=== PATIENT | female | born 1985 | race Caucasian/White ===

== ENCOUNTER → 2019-11-16 | Outpatient (CLI) | payer BC ==
[~2019-11-16] MED LIST: CPR500T PO; DEPO; FLOMAX; LEVOTHYROXINE; LVT.1T PO; MEDR150D8 IM; ONDA8TAB13 PO; OXYC1TAB95 PO; PERCOCET; PHEN200T27 PO; TAMS0.4C9 PO
== END ==
LOC: LAB FS 11:51
PROVIDERS: ATTEND Nurse Practitioner Family
DX: E04.9 Nontoxic goiter, unspecified (principal)

== ENCOUNTER → 2020-01-03 | Outpatient (CLI) | payer BC | LOC: LAB FS 09:22 | PROVIDERS: ATTEND Family Medicine | DX: N92.6 Irregular menstruation, unspecified (principal) | CPT/HCPCS: 36415; 84702 ==

== ENCOUNTER → 2020-02-08 | Outpatient (CLI) | payer BC ==
[2020-02-08 15:32] LABS: WHITE BLOOD COUNT 11.5 10^3/uL (4.3-11.0)
[2020-02-08 15:33] LABS: BASOPHILS % (AUTO) 0 % (0-10); EOSINOPHILS % (AUTO) 2 % (0-10); HEMATOCRIT 40 % (35-52); HEMOGLOBIN 13.4 G/DL (11.5-16.0); LYMPHOCYTES % (AUTO) 19 % (12-44); MEAN CORPUSCULAR HEMOGLOBIN 31 PG (25-34); MEAN CORPUSCULAR HGB CONC 34 G/DL (32-36); MEAN CORPUSCULAR VOLUME 92 FL (80-99); MEAN PLATELET VOLUME 10.4 FL (7.4-10.4); MONOCYTES % (AUTO) 6 % (0-12); NEUTROPHILS % (AUTO) 73 % (42-75); PLATELET COUNT 282 10^3/uL (130-400); RED CELL DISTRIBUTION WIDTH 12.7 % (10.0-14.5)
[2020-02-08 15:34] LABS: BASOPHILS # (AUTO) 0.1 10^3/uL (0.0-0.1); EOSINOPHILS # (AUTO) 0.2 10^3/uL (0.0-0.3); LYMPHOCYTES # (AUTO) 2.2 X 10^3 (1.0-4.0); MONOCYTES # (AUTO) 0.7 X 10^3 (0.0-1.0); NEUTROPHILS # (AUTO) 8.3 X 10^3 (1.8-7.8)
== END ==
LOC: LAB FS 14:44
PROVIDERS: ATTEND Family Medicine
DX: Z34.81 Encounter for supervision of other normal pregnancy, first trimester (principal)
CPT/HCPCS: 36415; 84443; 85025; 86703; 86762; 86780; 86850; 86900; 86901; 87088; 87340

== ENCOUNTER → 2020-04-04 | Outpatient (CLI) | payer BC | LOC: LAB FS 11:31 | PROVIDERS: ATTEND Family Medicine | DX: O99.280 Endocrine, nutritional and metabolic diseases complicating pregnancy, unspecified trimester (principal); E03.9 Hypothyroidism, unspecified; Z3A.00 Weeks of gestation of pregnancy not specified | CPT/HCPCS: 36415; 82105; 84443; 84702; 86336 ==

== ENCOUNTER → 2020-06-16 | Outpatient (CLI) | payer BC ==
[2020-06-16 16:47] LABS: HEMATOCRIT 38 % (35-52); HEMOGLOBIN 12.8 G/DL (11.5-16.0); MEAN CORPUSCULAR HEMOGLOBIN 30 PG (25-34); MEAN CORPUSCULAR VOLUME 91 FL (80-99); WHITE BLOOD COUNT 12.6 10^3/uL (4.3-11.0)
[2020-06-16 16:48] LABS: BASOPHILS % (AUTO) 0 % (0-10); EOSINOPHILS # (AUTO) 0.3 10^3/uL (0.0-0.3); EOSINOPHILS % (AUTO) 3 % (0-10); LYMPHOCYTES # (AUTO) 2.5 X 10^3 (1.0-4.0); LYMPHOCYTES % (AUTO) 20 % (12-44); MEAN CORPUSCULAR HGB CONC 34 G/DL (32-36); MEAN PLATELET VOLUME 10.6 FL (7.4-10.4); MONOCYTES # (AUTO) 0.6 X 10^3 (0.0-1.0); MONOCYTES % (AUTO) 5 % (0-12); NEUTROPHILS # (AUTO) 9.1 X 10^3 (1.8-7.8); NEUTROPHILS % (AUTO) 72 % (42-75); PLATELET COUNT 257 10^3/uL (130-400); RED CELL DISTRIBUTION WIDTH 12.4 % (10.0-14.5)
== END ==
LOC: LAB FS 16:08
PROVIDERS: ATTEND Family Medicine
DX: Z34.90 Encounter for supervision of normal pregnancy, unspecified, unspecified trimester (principal)
CPT/HCPCS: 36415; 82950; 85025; 85027; 86780

== ENCOUNTER → 2020-06-25 | Outpatient (CLI) | payer OTHER | LOC: LAB FS 07:42 | PROVIDERS: ATTEND Student in an Organized Health Care Education/Training Program | DX: O99.810 Abnormal glucose complicating pregnancy (principal); Z3A.00 Weeks of gestation of pregnancy not specified | CPT/HCPCS: 36415; 82951; 82952 ==

== ENCOUNTER → 2020-07-30 | Outpatient (CLI) | payer OTHER | LOC: LAB FS 11:40 | PROVIDERS: ATTEND Family Medicine | DX: E03.9 Hypothyroidism, unspecified (principal) | CPT/HCPCS: 36415; 84443 ==

== ENCOUNTER → 2020-08-14 | Outpatient (CLI) | payer OTHER | LOC: LABNPT 14:44 | PROVIDERS: ATTEND Family Medicine | DX: O09.90 Supervision of high risk pregnancy, unspecified, unspecified trimester (principal) | CPT/HCPCS: 87081 ==

== ENCOUNTER 2020-09-03 06:21 | Inpatient (IN) | payer OTHER ==
[~2020-09-03] VITALS: Ht 172.7 cm; Wt 95.2 kg
[2020-09-03] VITALS (75 sets, daily range): BP systolic 100–134; BP diastolic 54–91
[2020-09-03] MEDS ORDERED: OXYTOCIN PRE-MIX DRIP 500 ML IV SCH ×2 (06:33→23:34)
--- NOTE | 2020-09-03 06:40 | NUR ---
ROMELIA OCHOA presented to unit via ambulation from ED, accompanied by so, with c/o INDUCTION. ROMELIA OCHOA weighed, gowned, voided, and to bed. EFHM and TOCO applied, VS taken. ROMELIA OCHOA oriented to bed controls, call light, TV, heat, and A/C controls.
[2020-09-03] MEDS ORDERED: MINERAL OIL CONCENTRATE 99.9% 15 ML UDC TOP PRN (06:45)
[2020-09-03] MEDS ORDERED: LIDOCAINE/EPI 2% 1:200,00 (XYLOCAINE) 10 ML VIAL INJ PRN (06:45)
[2020-09-03] MEDS ORDERED: LEVOTHYROXINE 100 MCG (LEVOTHROID) TAB PO SCH ×2 (06:45→06:58)
--- NOTE | 2020-09-03 06:58 | NUR ---
Pt on EFM for induction FHR 150's pt denies UC at this time.
--- NOTE | 2020-09-03 07:17 | NUR ---
#20g IV to Lt.FA x1 attempt per this RN. site patent, secured with opsite. admission labs collected from site prior to IVF's infusing.
[2020-09-03] MEDS: D5 LR IV SOLUTION 1,000 ML IV SCH ×2 (07:27→15:19)
[2020-09-03 07:46] LABS: BILIRUBIN,URINE NEGATIVE (NEGATIVE); CLARITY,URINE CLOUDY; COLOR,URINE ORANGE; GLUCOSE, URINE (UA) NEGATIVE (NEGATIVE); KETONES,URINE NEGATIVE (NEGATIVE); LEUKOCYTE ESTERASE ,URINE 2+ (NEGATIVE); NITRITE,URINE NEGATIVE (NEGATIVE); PH,URINE 6.5 (5-9); PROTEIN,URINE NEGATIVE (NEGATIVE)
[2020-09-03 07:48] LABS: BASOPHILS % (AUTO) 0 % (0-10); EOSINOPHILS # (AUTO) 0.2 10^3/uL (0.0-0.3); EOSINOPHILS % (AUTO) 2 % (0-10); HEMATOCRIT 37 % (35-52); HEMOGLOBIN 11.9 g/dL (11.5-16.0); LYMPHOCYTES # (AUTO) 2.1 10^3/uL (1.0-4.0); LYMPHOCYTES % (AUTO) 22 % (12-44); MEAN CORPUSCULAR HEMOGLOBIN 28 pg (25-34); MEAN CORPUSCULAR HGB CONC 33 g/dL (32-36); MEAN CORPUSCULAR VOLUME 86 fL (80-99); MEAN PLATELET VOLUME 12.1 fL (9.0-12.2); MONOCYTES # (AUTO) 0.6 10^3/uL (0.0-1.0); MONOCYTES % (AUTO) 6 % (0-12); NEUTROPHILS # (AUTO) 6.5 10^3/uL (1.8-7.8); NEUTROPHILS % (AUTO) 69 % (42-75); PLATELET COUNT 250 10^3/uL (130-400); WHITE BLOOD COUNT 9.5 10^3/uL (4.3-11.0)
[2020-09-03 07:54] LABS: BACTERIA,URINE MODERATE /HPF; SQUAMOUS EPITHELIAL CELL,UR 25-50 /HPF
[2020-09-03] MEDS ORDERED: METF-397 PO (09:53)
[2020-09-03] MEDS ORDERED: LORA10CA PO (09:53)
[2020-09-03] MEDS ORDERED: fentaNYL 2 mcg/ml BUPIVA 0.125 100 ML ONE (10:14)
--- NOTE | 2020-09-03 10:31 | NUR ---
anesthesia notified of pt's request for epidural placement.
--- NOTE | 2020-09-03 10:55 | NUR ---
MARY Sierra and CHELSEA Andrade here for epidural placement. Procedure explained, consent reviewed and signed by anesthesia. Questions answered to patient's satisfaction. Time out taken to verify correct patient/procedure. 1100 Patient up to side of bed, assisted into sitting position. Betadine prep done x3 and sterile drape applied. 1107- Local done, see anesthesia record. 1116- Test dose given, see anesthesia record for drug and dosage. Epidural catheter secured in place. Epidural placement complete. 1123- Assisted back into bed, monitors adjusted. Epidural dosed, see anesthesia record. Epidural of Sufenta/Fentanyl @ 12cc/hr stated per pump. Patient tolerated procedure well.
[2020-09-03] MEDS ORDERED: BUPIVACAINE 0.25% 30 ML (SENSORCAINE) VIAL ONE (11:02)
[2020-09-03] MEDS ORDERED: fentaNYL INJECTION 100 MCG/2 ML AMP ONE (11:02)
[2020-09-03] MEDS ORDERED: LACTATED RINGERS 1,000 ML IV SCH (11:51)
--- NOTE | 2020-09-03 11:59 | NUR ---
Phillip Liz CRNA notified of pt's c/o regarding haley catheter placement and SVE. will come to evaluate.
[2020-09-03] MEDS ORDERED: EPIDURAL (fentaNYL 2 MCG/ML BUPIVA 0.125%)100 ML BAG EPI PRN (12:00)
[2020-09-03] MEDS ORDERED: ONDANSETRON 4 MG/2 ML (SDV) Z0FRAN IV PRN (12:00)
[2020-09-03] MEDS ORDERED: diphenhydrAMINE 50 MG/ML INJ (BENADRYL) IV PRN (12:00)
[2020-09-03] MEDS ORDERED: NALOXONE 0.4 MG/ML 1 ML (NARCAN) VIAL IV PRN ×2 (12:00)
[2020-09-03] MEDS ORDERED: fentaNYL 2 mcg/ml BUPIVA 0.125 100 ML EPI PRN (12:00)
[2020-09-03] MEDS ORDERED: METOCLOPRAMIDE INJ 10 MG/2 ML (REGLAN) IV PRN (12:00)
--- NOTE | 2020-09-03 12:07 | NUR ---
MARY Sierra here for epidural placement. Questions answered to patient's satisfaction. 1207- Patient up to side of bed, assisted into sitting position. Betadine prep done x3 and sterile drape applied. 1210- Local done, see anesthesia record. 1229- Test dose given, see anesthesia record for drug and dosage. Epidural catheter secured in place. Epidural placement complete. 1233-Assisted back into bed, monitors adjusted. Epidural dosed, see anesthesia record. Epidural of Sufenta/Fentanyl @ 12cc/hr. Addendum: 09/03/20 at 1438 by SASHA OCHOA RN 1208- epidural pump off. aditi benites'marc per MARY Sierra.
[2020-09-03] MEDS ORDERED: CATHETER FLUSH 10 ML SYR IV SCH (14:00)
--- NOTE | 2020-09-03 20:45 | History & Physical-OB ---
OB - Chief Complaint & HPI Date/Time Date of Admission: Date of Admission: Sep 03, 2020 at 06:21 Date seen by a Provider: Sep 03, 2020 Time Seen by a Provider: 16:30 Chief Complaint/History OB-Reason for Admission/Chief: Induction of Labor Hx : 2 Hx Para: 1 Expected Date of Delivery: Sep 10, 2020 Gestational Age in Weeks: 39 Gestational Age in Days: 0 Admission Nurse Assessment Rev: Yes Allergies and Home Medications Allergies Coded Allergies: cefaclor (Verified Allergy, Mild, 04/08/15) Home Medications Levothyroxine Sodium 100 Mcg Tablet, 100 MCG PO DAILY, (Reported) Loratadine 10 Mg Capsule, 10 MG PO DAILY, (Reported) Metformin HCl 500 Mg Tablet, 500 MG PO DAILY, (Reported) Patient Home Medication List Home Medication List Reviewed: Yes OB - History Hx of Present Care: Yes Ultrasounds: Normal mid trimester US Obstetrical Complications: Gestational Diabetes Medical Complications: Other (Hypothyroidism) Delivery History Hx Blood Disorders: No Patient Past Medical History Hypothyroidism Social History/Family History Recent Infectious Disease Expo: No Alcohol Use: Denies Use Recreational Drug Use: No OB - Admission Exam Physical Exam Vitals: Vital Signs 09/03/20 09/03/20 19:15 19:45 Temp 36.5 Pulse 95 Resp 18 B/P (MAP) 118/77 (91) Pulse Ox 97 O2 Delivery Room Air HEENT: NCAT Heart: Rhythm Normal Lungs: Clear Abdomen: Gravid Extremities: Normal Reflexes: Normal Cervical Dilatation: 4cm Effacement: 75% Station: Ballotable Membranes: Intact Heart Rate: 130's Accelerations: Accelerations Present Decelerations: Variable Decelerations Short Term Variability: Present 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 Variability: Average (6-25) Labs Laboratory Tests Test 09/03/20 07:30 Range/Units White Blood Count 9.5 4.3-11.0 10^3/uL Red Blood Count 4.23 3.80-5.11 10^6/uL Hemoglobin 11.9 11.5-16.0 g/dL Hematocrit 37 35-52 % Mean Corpuscular Volume 86 80-99 fL Mean Corpuscular Hemoglobin 28 25-34 pg Mean Corpuscular Hemoglobin Concent 33 32-36 g/dL Red Cell Distribution Width 12.8 10.0-14.5 % Platelet Count 250 130-400 10^3/uL Mean Platelet Volume 12.1 9.0-12.2 fL Immature Granulocyte % (Auto) 0 % Neutrophils (%) (Auto) 69 42-75 % Lymphocytes (%) (Auto) 22 12-44 % Monocytes (%) (Auto) 6 0-12 % Eosinophils (%) (Auto) 2 0-10 % Basophils (%) (Auto) 0 0-10 % Neutrophils # (Auto) 6.5 1.8-7.8 10^3/uL Lymphocytes # (Auto) 2.1 1.0-4.0 10^3/uL Monocytes # (Auto) 0.6 0.0-1.0 10^3/uL Eosinophils # (Auto) 0.2 0.0-0.3 10^3/uL Basophils # (Auto) 0.0 0.0-0.1 10^3/uL Immature Granulocyte # (Auto) 0.0 0.0-0.1 10^3/uL Urine Color ORANGE Urine Clarity CLOUDY Urine pH 6.5 5-9 Urine Specific [place] 1.025 H 1.016-1.022 Urine Protein NEGATIVE NEGATIVE Urine Glucose (UA) NEGATIVE NEGATIVE Urine Ketones NEGATIVE NEGATIVE Urine Nitrite NEGATIVE NEGATIVE Urine Bilirubin NEGATIVE NEGATIVE Urine Urobilinogen 0.2 < = 1.0 MG/DL Urine Leukocyte Esterase 2+ H NEGATIVE Urine RBC (Auto) 2+ H NEGATIVE Urine RBC 10-25 H /HPF Urine WBC 5-10 H /HPF Urine Squamous Epithelial Cells 25-50 H /HPF Urine Crystals NONE /LPF Urine Bacteria MODERATE H /HPF Urine Casts NONE /LPF Urine Mucus NEGATIVE /LPF Urine Culture Indicated YES OB - Assessment/Plan/Diagnosis Assessment Assessment: induction of labor Admission Dx Induction of labor at 39 0/7. Gestational diabetes, A1. Admission Status: Inpatient Order (span 2 midnights) Reason for Inpatient Admission: Induction. Plan Plan: Induction Induction Method: AROM Other Plan Pitocin. AROM. Epidural for pain. KIARA MELTON MD Sep 03, 2020 20:45
--- NOTE | 2020-09-03 23:38 | OB Labor & Delivery Record ---
Vag Delivery Note Vag Delivery Note Date of Delivery: 09/03/20 Preoperative Diagnosis: Rhonda Marte is a (35 /Para 2 / 1,Gestational Age (wks)39with [0 days] Postoperative Diagnosis: Same Surgeon: KIARA MELTON Draw String Knotter: [none] Anesthesia: [epidural] Delivery Type: [] Findings: [] Viable [male] infant, apgars [8/9], weight [8 pounds 6 ounces] Lacerations: Intact placenta with 3 vessel cord. No nuchal cord, body cord or shoulder dystocia Estimated Blood Loss: [200] ml Complications: None Condition: Stable Description of Procedure: The patient is a 35 year old female who presented [for induction]. She was admitted and informed consent was obtained. Her labor course was remarkable for [nothing] She progressed to complete dilatation and began to push. She was then set up for delivery. The 's head was delivered atraumatically in the [OA] position. The shoulders and remainder of the 's body were then delivered without difficulty. Upon delivery, the head was held below the level of the perineum and the mouth and nares were bulb suctioned. The cord was doubly clamped and cut after 60 seconds and the infant was handed off to the pediatric staff. An intact placenta with 3-vessel cord delivered via Edmundo and there was found to be minimal bleeding.~ Vigorous fundal massage was performed and the fundus was found to be firm. IV oxytocin was given. Examination of the vagina and perineum revealed a 1st degree perineal] laceration repaired in the usual fashion with 3-0 vicryl suture. Following the repair, sponge, instrument and needle counts were correct. Mom and baby were both in stable condition in the labor suite. Vitals - Labs Vital Signs - I&O Vital Signs Date Time Temp Pulse Resp B/P (MAP) Pulse Ox O2 Delivery O2 Flow Rate FiO2 09/03/20 22:15 70 18 112/77 (89) Room Air 09/03/20 22:00 78 18 125/82 (96) Room Air 09/03/20 21:45 68 18 128/83 (98) Room Air 09/03/20 21:30 71 18 119/66 (83) Room Air 09/03/20 21:15 68 18 114/69 (84) Room Air 09/03/20 21:00 76 18 109/62 (78) 99 Room Air 09/03/20 20:45 96 18 127/69 (88) 99 Room Air 09/03/20 20:30 82 18 119/81 (94) 99 Room Air 09/03/20 20:15 76 18 119/79 (92) 99 Room Air 09/03/20 20:00 85 18 124/80 (95) 97 Room Air 09/03/20 19:45 95 18 118/77 (91) 97 Room Air 09/03/20 19:30 85 18 119/76 (90) 97 Room Air 09/03/20 19:15 36.5 104 18 119/80 (93) 97 Room Air 09/03/20 19:00 106 18 115/70 (85) 97 Room Air 09/03/20 18:45 97 18 117/70 (86) 98 Room Air 09/03/20 18:30 96 18 118/71 (87) 98 Room Air 09/03/20 18:15 103 18 120/71 (87) 97 Room Air 09/03/20 18:00 107 18 113/69 (84) 96 Room Air 09/03/20 17:45 93 18 112/69 (83) 96 Room Air 09/03/20 17:30 36.6 94 18 120/77 (91) 97 Room Air 09/03/20 17:15 87 18 127/79 (95) 96 Room Air 09/03/20 17:00 90 18 115/70 (85) 97 Room Air 09/03/20 16:45 85 18 123/75 (91) 96 Room Air 09/03/20 16:30 85 18 113/67 (82) 97 Room Air 09/03/20 16:15 86 18 118/76 (90) 98 Room Air 09/03/20 16:00 85 18 112/67 (82) 98 Room Air 09/03/20 15:45 90 18 115/72 (86) 98 Room Air 09/03/20 15:30 88 18 111/83 (92) 97 Room Air 09/03/20 15:15 36.6 83 18 115/82 (93) 98 Room Air 09/03/20 15:00 78 18 103/62 (76) 98 Room Air 09/03/20 14:45 77 18 107/62 (77) 98 Room Air 09/03/20 14:30 71 18 107/58 (74) 99 Room Air 09/03/20 14:15 81 18 115/66 (82) 98 Room Air 09/03/20 14:00 82 18 114/68 (83) 98 Room Air 09/03/20 13:45 84 18 102/58 (73) 98 Room Air 09/03/20 13:30 84 18 108/63 (78) 99 Room Air 09/03/20 13:15 82 18 106/54 (71) 99 Room Air 09/03/20 13:00 84 18 100/57 (71) 98 Room Air 09/03/20 12:45 86 18 98 Room Air 09/03/20 12:40 83 18 100/57 (71) 97 Room Air 09/03/20 12:35 89 18 109/56 (73) 97 Room Air 09/03/20 12:30 91 18 123/73 (90) 98 Room Air 09/03/20 12:20 82 18 117/73 (88) 98 Room Air 09/03/20 12:15 87 18 125/76 (92) 98 Room Air 09/03/20 12:10 88 18 129/83 (98) 98 Room Air 09/03/20 12:05 85 18 126/77 (93) 98 Room Air 09/03/20 12:00 37.0 82 18 106/66 (79) 97 Room Air 09/03/20 11:45 78 18 124/70 (88) 96 Room Air 09/03/20 11:40 89 18 110/55 (73) 97 Room Air 09/03/20 11:35 75 18 113/59 (77) 97 Room Air 09/03/20 11:30 85 18 113/55 (74) 97 Room Air 09/03/20 11:25 92 18 122/65 (84) 98 Room Air 09/03/20 11:20 89 18 125/81 (96) 99 Room Air 09/03/20 11:15 85 18 125/79 (94) 99 Room Air 09/03/20 11:10 89 18 133/85 (101) 98 Room Air 09/03/20 11:05 91 18 127/78 (94) 98 Room Air 09/03/20 11:00 93 18 128/84 (99) 98 Room Air 09/03/20 10:45 91 18 130/85 (100) Room Air 09/03/20 10:30 93 18 124/81 (95) Room Air 09/03/20 10:15 90 18 118/75 (89) Room Air 09/03/20 10:00 88 18 118/74 (89) Room Air 09/03/20 09:45 96 18 121/75 (90) Room Air 09/03/20 09:30 96 18 121/75 (90) Room Air 09/03/20 09:15 88 18 126/78 (94) Room Air 09/03/20 09:00 99 18 119/71 (87) Room Air 09/03/20 08:45 91 18 127/77 (94) Room Air 09/03/20 08:30 93 18 134/82 (99) Room Air 09/03/20 08:15 100 18 130/91 (104) Room Air 09/03/20 08:00 101 18 119/73 (88) Room Air 09/03/20 07:45 99 18 122/77 (92) Room Air 09/03/20 07:30 89 18 131/89 (103) Room Air 09/03/20 07:25 36.0 97 18 98 Room Air 09/03/20 07:25 36.0 97 18 131/87 (102) 98 Room Air Labs Laboratory Tests 09/03/20 07:30: White Blood Count 9.5, Red Blood Count 4.23, Hemoglobin 11.9, Hematocrit 37, Mean Corpuscular Volume 86, Mean Corpuscular Hemoglobin 28, Mean Corpuscular Hemoglobin Concent 33, Red Cell Distribution Width 12.8, Platelet Count 250, Mean Platelet Volume 12.1, Immature Granulocyte % (Auto) 0, Neutrophils (%) (Auto) 69, Lymphocytes (%) (Auto) 22, Monocytes (%) (Auto) 6, Eosinophils (%) (Auto) 2, Basophils (%) (Auto) 0, Neutrophils # (Auto) 6.5, Lymphocytes # (Auto) 2.1, Monocytes # (Auto) 0.6, Eosinophils # (Auto) 0.2, Basophils # (Auto) 0.0, Immature Granulocyte # (Auto) 0.0, Urine Color ORANGE, Urine Clarity CLOUDY, Urine pH 6.5, Urine Specific [place] 1.025H, Urine Protein NEGATIVE, Urine Glucose (UA) NEGATIVE, Urine Ketones NEGATIVE, Urine Nitrite NEGATIVE, Urine Bilirubin NEGATIVE, Urine Urobilinogen 0.2, Urine Leukocyte Esterase 2+H, Urine RBC (Auto) 2+H, Urine RBC 10-25H, Urine WBC 5-10H, Urine Squamous Epithelial Cells 25-50H, Urine Crystals NONE, Urine Bacteria MODERATEH, Urine Casts NONE, Urine Mucus NEGATIVE, Urine Culture Indicated YES KIARA MELTON MD Sep 03, 2020 23:38
[2020-09-03] MEDS ORDERED: MEASLES,MUMPS,RUBELLA 1 EA INJ SQ ONE (23:45)
[2020-09-03] MEDS ORDERED: TETANUS,DIPTH,PERTUSS P/F (BOOSTRIX) 0.5 ML VIAL IM ONE (23:45)
[2020-09-03] MEDS ORDERED: BENZOCAINE/MENTHOL (DERMOPLAST) 60 ML CAN TP PRN (23:45)
[2020-09-03] MEDS ORDERED: WITCH HAZEL(TUCKS) 40 EA JAR TOP PRN (23:45)
[2020-09-04] VITALS (12 sets, daily range): BP systolic 108–133; BP diastolic 57–85
[2020-09-04] MEDS ORDERED: ACETAMINOPHEN 500 MG TAB (TYLENOL) ONE (01:02)
[2020-09-04] MEDS: ACETAMINOPHEN 500 MG TAB (TYLENOL) PO SCH ×3 (01:07→17:30)
[2020-09-04] MEDS: IBUPROFEN 600 MG (MOTRIN) TAB PO SCH ×4 (01:07→19:31)
--- NOTE | 2020-09-04 01:30 | NUR ---
Pericare completed. moderate rubra noted. pad changed. pt still unable to move right leg. will wait to transfer pt to pp room at this time.
--- NOTE | 2020-09-04 02:39 | NUR ---
pt is resting with eyes closed. She is able to move her right leg, but wants to rest. Will put administration specialist light when shes ready to move.
--- NOTE | 2020-09-04 04:00 | NUR ---
pt requesting to move to room. pericare completed. ff. light rubra. pt ambulated to bathroom. positive void. pericare completed. pt ambulated to w'c and taken down to 309. pt orientated to room. info papers discussed. ice pack applied to perineum. call light within reach. pt denies any further needs. Will continue to monitor.
[2020-09-04] MEDS ORDERED: CATHETER FLUSH 10 ML SYR IV SCH (06:00)
[2020-09-04 06:04] LABS: BASOPHILS % (AUTO) 0 % (0-10); EOSINOPHILS # (AUTO) 0.1 10^3/uL (0.0-0.3); EOSINOPHILS % (AUTO) 1 % (0-10); HEMATOCRIT 35 % (35-52); LYMPHOCYTES # (AUTO) 1.7 10^3/uL (1.0-4.0); LYMPHOCYTES % (AUTO) 11 % (12-44); MEAN CORPUSCULAR HEMOGLOBIN 28 pg (25-34); MEAN CORPUSCULAR HGB CONC 31 g/dL (32-36); MEAN CORPUSCULAR VOLUME 89 fL (80-99); MEAN PLATELET VOLUME 11.9 fL (9.0-12.2); MONOCYTES # (AUTO) 1.2 10^3/uL (0.0-1.0); MONOCYTES % (AUTO) 8 % (0-12); NEUTROPHILS # (AUTO) 12.3 10^3/uL (1.8-7.8); NEUTROPHILS % (AUTO) 79 % (42-75); PLATELET COUNT 205 10^3/uL (130-400); WHITE BLOOD COUNT 15.4 10^3/uL (4.3-11.0)
[2020-09-04 06:33] LABS: EOSINOPHILS % (MANUAL) 1 %; LYMPHOCYTES % (MANUAL) 23 %; MONOCYTES % (MANUAL) 4 %; NEUTROPHILS % (MANUAL) 72 %; RBC MORPH NORMAL
--- NOTE | 2020-09-04 06:56 | Anesthesia-Regional Post-Op ---
Regional Patient Condition Mental Status: Alert, Oriented x3 Circulation: Same as Pre-Op Headache: Absent Sensation: Full Recovery Motor Block: Absent Post Op Complications Complications None Follow Up Care/Instructions Patient Instructions None needed. Anesthesia/Patient Condition Patient is doing well, no complaints, stable vital signs, no apparent adverse anesthesia problems. No complications reported per nursing. VELMA BEARD CRNA Sep 04, 2020 06:56
--- NOTE | 2020-09-04 07:00 | NUR ---
Report received from Mavis KEN.
[2020-09-04] MEDS: LEVOTHYROXINE 100 MCG (LEVOTHROID) TAB PO SCH (08:19)
[2020-09-04] MEDS: DOCUSATE SODIUM 100 MG (COLACE) CAP PO SCH ×2 (08:19→21:07)
--- NOTE | 2020-09-04 08:40 | NUR ---
Initial assessment completed, vss, no distress noted, see interventions for detailed assessments, plan of care explained, no questions or concerns noted, will monitor closely.
[2020-09-04] MEDS ORDERED: LEVOTHYROXINE 100 MCG (LEVOTHROID) TAB PO SCH (09:00)
--- NOTE | 2020-09-04 13:51 | NUR ---
Pt pumping, s/o sleeping at bedside, no distress noted, no questions or concerns noted by pt. Infant remains at bedside.
--- NOTE | 2020-09-04 19:30 | NUR ---
RN to room for assessment. Pt reports no clots and minimal bleeding. FFU/0. Mother denies any needs or concerns at this time.
[2020-09-05 01:16] VITALS: BP 115/80
[2020-09-05] MEDS: ACETAMINOPHEN 500 MG TAB (TYLENOL) PO SCH (01:18)
[2020-09-05] MEDS: IBUPROFEN 600 MG (MOTRIN) TAB PO SCH ×3 (01:18→14:12)
--- NOTE | 2020-09-05 01:30 | NUR ---
Scheduled meds given to pt. Pt denies any pain, and voices no concerns or needs at this time.
--- NOTE | 2020-09-05 02:00 | NUR ---
Pt updated on infant status and reviewed plan of care, verbalizes understanding. Mother sleeping with infant in open crib at bedside.
[2020-09-05 06:06] VITALS: BP 118/65
[2020-09-05] MEDS: LEVOTHYROXINE 100 MCG (LEVOTHROID) TAB PO SCH (06:08)
[2020-09-05] MEDS ORDERED: IBUP-844 PO (07:18)
--- NOTE | 2020-09-05 07:19 | Discharge Summary ---
Discharge Inst-[facility] Reconcile Patient Problems Problems Reviewed?: Yes Depart Medications New, Converted or Re-Newed RX: Transmitted to Pharmacy Follow Up/Instructions Goal/Follow Up: [address] melton Activity Activity: Activity as Tolerated Driving Instructions: You May Drive NO SMOKING: NO SMOKING Nothing Inside Vagina: No Douching, No [place], No Tampons Diet Discharge Diet: No Restrictions Symptoms to Report to : Fever Over 101 Degrees F, Vaginal Bleeding Increase For Any Problems or Questions: Contact Your Physician KIARA MELTON MD Sep 05, 2020 07:19
--- NOTE | 2020-09-05 07:21 | Discharge Summary ---
Diagnosis/Chief Complaint Date of Admission Sep 03, 2020 at 06:21 Date of Discharge Sep 05, 2020 Admission Diagnosis Admission Diagnosis Induction of labor at 39 0/7 wga. Gestational diabetes, A1. Discharge Diagnosis Vaginal delivery at 39 0/7 wga. Problems/Diagnosis: (1) care following vaginal delivery Discharge Summary-OBS Procedures None. Discharge Physical Examination Allergies: Coded Allergies: cefaclor (Verified Allergy, Mild, 04/08/15) Vitals & I&Os Vital Sign - Last 12Hours Date Time Temp Pulse Resp B/P (MAP) Pulse Ox O2 Delivery O2 Flow Rate FiO2 09/05/20 06:06 36.5 79 18 118/65 (82) 98 Room Air General Appearance: Alert, Oriented X3 HEENT: Atraumatic Abdominal: Soft, Other (fundus below umbilicus) Neuro: Normal Gait Psych/Mental Status: Mental Status NL Hospital Course Was the Problem List Reviewed?: Yes Unremarkable course. Labs Microbiology 09/03/20 Urine Culture - Final, Complete >=3 Gram Positive Isolates Discharge Instructions to patient/family Please see electronic discharge instructions given to patient. Discharge Medications Reviewed and agree with Discharge Medication list on patient's Discharge Instruction sheet Clinical Quality Measures DVT/VTE Risk/Contraindication: Risk Factor Score Per Nursin RFS Level Per Nursing on Admit: 1=Low/No VTE PPX KIARA MELTON MD Sep 05, 2020 07:21
--- NOTE | 2020-09-05 07:23 | Progress Note ---
Subjective Subjective/Events-last exam Patient nursing. Pain controlled. No complaints. Objective Exam Last Set of Vital Signs Vital Signs Date Time Temp Pulse Resp B/P (MAP) Pulse Ox O2 Delivery O2 Flow Rate FiO2 09/05/20 06:06 36.5 79 18 118/65 (82) 98 Room Air Capillary Refill : Less Than 3 Seconds I&O Intake and Output 09/05/20 00:00 Intake Total 500 ml Balance 500 ml Intake IV Total 500 ml General: Alert, Oriented X3 HEENT: Atraumatic Neck: Supple Neuro: Normal Gait Psych/Mental Status: Mental Status NL Results/Procedures Lab Microbiology 09/03/20 Urine Culture - Final, Complete >=3 Gram Positive Isolates Procedures None. Assessment/Plan Assessment/Plan Admission Dx day, 1. Reason for Inpatient Admission: vaginal delivery at 39 0/7 wga. (1) care following vaginal delivery Clinical Quality Measures DVT/VTE Risk/Contraindication: Risk Factor Score Per Nursin RFS Level Per Nursing on Admit: 1=Low/No VTE PPX KIARA MELTON MD Sep 05, 2020 07:23
[2020-09-05 08:09] VITALS: BP 117/81
[2020-09-05] MEDS: DOCUSATE SODIUM 100 MG (COLACE) CAP PO SCH (08:10)
[2020-09-05 14:13] VITALS: BP 133/69
--- NOTE | 2020-09-05 16:45 | NUR ---
Discharge instructions explained to pt with copy provided along with follow up appt information. Pt notified of prescription available at [facility] pharmacy in [facility]. Pt verbalizes understanding of instructions and signs to verify. All questions and concerns answered to pt satisfaction. No further questions voiced. Pt awaiting infant discharge instructions and will be ready for dismissal.
--- NOTE | 2020-09-05 17:20 | NUR ---
Pt ambulates off unit to private vehicle accompanied by S.O., , and RN with all personal belongings. No s/s of distress noted.
== END 2020-09-05 17:20 | disposition home or self-care (01) | DRG 807 ==
LOC: LDRP 06:21
PROVIDERS: ADMIT Family Medicine; ATTEND Family Medicine
PROC: 10E0XZZ Delivery of Products of Conception, External Approach (ICD-10-PCS; principal; 2020-09-03)
PROC: 0HQ9XZZ Repair Perineum Skin, External Approach (ICD-10-PCS; 2020-09-03)
PROC: 10907ZC Drainage of Amniotic Fluid, Therapeutic from Products of Conception, Via Natural or Artificial Opening (ICD-10-PCS; 2020-09-03)
PROC: 3E033VJ Introduction of Other Hormone into Peripheral Vein, Percutaneous Approach (ICD-10-PCS; 2020-09-03)
DX: O24.429 Gestational diabetes mellitus in childbirth, unspecified control (principal); Z37.0 Single live birth; Z3A.39 39 weeks gestation of pregnancy; O70.0 First degree perineal laceration during delivery
CPT/HCPCS: 36415; 81000; 85007; 85025; 85027; 86850; 86900; 86901; 87088

== ENCOUNTER → 2020-10-20 | Outpatient (CLI) | payer BC ==
[~2020-10-20] MED LIST changes: +IBUP-844 PO; +LORA10CA PO; +METF-397 PO
== END ==
LOC: LAB FS 14:58
PROVIDERS: ATTEND Family Medicine
DX: E03.9 Hypothyroidism, unspecified (principal)
CPT/HCPCS: 36415; 84443

== ENCOUNTER → 2020-11-03 | Outpatient (CLI) | payer BC ==
--- NOTE | 2020-11-03 14:32 | Diagnostic Imaging Report ---
EXAMINATION: Thyroid ultrasound. INDICATION: Nontoxic goiter. COMPARISON: There are no prior studies available for comparison. FINDINGS: The thyroid gland is prominent with the right lobe measuring 5.3 x 1.8 x 1.7 cm and the left lobe estimated to be 4.1 x 1.5 x 1.5 cm. (Normal gland size 4-5 x 2.2 cm or less). Each lobe has a heterogeneous texture but there is no discrete nodule identified within either lobe. However, there does seem to be increased vascularity to each lobe. This does raise a question of an inflammatory/infectious process involving the thyroid gland. Correlation with patient's thyroid laboratory values would be recommended. IMPRESSION: 1. The thyroid gland is prominent and has a heterogeneous appearance. The increased vascularity associated with each lobe also raises a question of an inflammatory/infectious process. Clinical follow-up is recommended. 2. There is no discrete solid or cystic nodule identified. Dictated by: Dictated on workstation # [id number]
== END ==
LOC: RAD FS 13:42
PROVIDERS: ATTEND Family Medicine
DX: E04.9 Nontoxic goiter, unspecified (principal)
CPT/HCPCS: 76536

== ENCOUNTER → 2020-12-18 | Outpatient (CLI) | payer BC | LOC: LAB FS 16:30 | PROVIDERS: ATTEND Family Medicine | DX: E03.9 Hypothyroidism, unspecified (principal) ==